=== PATIENT | female | born 1995 | race Two or more races ===

== ENCOUNTER 2017-09-19 12:22 | Emergency (ER) | payer OTHER ==
[~2017-09-19] VITALS: Ht 167.6 cm; Wt 59.0 kg
[2017-09-19 12:22] VITALS: BP_SYST 128
[2017-09-19 13:14] LABS: BILIRUBIN,URINE NEGATIVE (NEGATIVE); BLOOD, URINE NEGATIVE (NEGATIVE); CLARITY/URINE CLEAR (CLEAR); COLOR,URINE YELLOW (YELLOW); GLUCOSE,URINE NEGATIVE (NEGATIVE); KETONES,URINE NEGATIVE (NEGATIVE); LEUKOCYTE ESTERASE ,URINE NEGATIVE (NEGATIVE); NITRITE, URINE NEGATIVE (NEGATIVE); PROTEIN URINE NEGATIVE (NEGATIVE); UROBILINOGEN,URINE 0.2 (0.2-1.0)
[2017-09-19] MEDS ORDERED: cefTRIAXone 250 MG VIAL IM ONE (13:45)
[2017-09-19] MEDS ORDERED: AZITHROMYCIN 250 MG TABLET PO ONE (13:45)
[2017-09-19 14:37] VITALS: BP_SYST 122
== END 2017-09-19 14:37 | disposition home or self-care (01) ==
LOC: SED 12:22
DX: R30.0 Dysuria (principal); R03.0 Elevated blood-pressure reading, without diagnosis of hypertension
CPT/HCPCS: 36415; 81003; 81025; 86592; 87210; 87491; 87591; 96372; 99284; J0696; Q0144